=== PATIENT | female | born 2000 | race Caucasian/White ===

== ENCOUNTER 2023-10-31 09:57 | Outpatient (RCR) | payer OTHER, SELFPAY ==
[2023-10-31 10:05] VITALS: BP 108/58
[2023-10-31] MEDS: VENOFER 110 MG IV (10:16)
== END 2023-11-01 09:21 | disposition home or self-care (01) ==
LOC: OID 09:57
PROVIDERS: ATTENDING PHYSICIAN Nurse Practitioner Family; FAMILY PHYSICIAN Family Medicine
DX: D50.9 Iron deficiency anemia, unspecified (principal); E61.1 Iron deficiency; N92.0 Excessive and frequent menstruation with regular cycle
CPT/HCPCS: 96365; J1756

== ENCOUNTER 2023-11-24 12:56 | Outpatient (RCR) | payer OTHER, SELFPAY ==
[2023-11-07 14:30] VITALS: BP 121/77
[2023-11-07] MEDS: VENOFER 110 MG IV (14:42)
[2023-11-07 15:45] VITALS: BP 112/63
[2023-11-14 10:20] VITALS: BP 105/70
[2023-11-14] MEDS: VENOFER 110 MG IV (10:32)
[2023-11-14 11:40] VITALS: BP 107/66
[2023-11-21 10:09] VITALS: BP 101/76
[2023-11-21] MEDS: VENOFER 110 MG IV (10:18)
[2023-11-21 11:29] VITALS: BP 129/83
[2023-11-24 13:10] VITALS: BP 114/41
[2023-11-24] MEDS: VENOFER 110 MG IV (13:19)
[2023-11-24 14:25] VITALS: BP 106/64
== END 2023-11-25 09:24 | disposition home or self-care (01) ==
LOC: OID 12:56
PROVIDERS: ATTENDING PHYSICIAN Nurse Practitioner Family; FAMILY PHYSICIAN Family Medicine
DX: D50.9 Iron deficiency anemia, unspecified (principal); R53.83 Other fatigue; E61.1 Iron deficiency; N92.0 Excessive and frequent menstruation with regular cycle; Z83.2 Family history of diseases of the blood and blood-forming organs and certain disorders involving the immune mechanism
CPT/HCPCS: 96365; J1756

== ENCOUNTER → 2024-02-02 10:36 | Outpatient (REF) | payer OTHER, SELFPAY ==
[2024-02-04 14:10] LABS: Quantiferon Mitogen minus NIL 9.99 IU/mL; Quantiferon NIL 0.01 IU/mL; Quantiferon Plus TB1 minus NIL 0.13 IU/mL (<=0.34); Quantiferon Plus TB2 minus NIL 0.16 IU/mL (<=0.34); Quantiferon TB Gold Plus Negative (Negative)
== END ==
LOC: OHS 10:36
PROVIDERS: ATTENDING PHYSICIAN Nurse Practitioner Family
DX: Z23 Encounter for immunization (principal)
CPT/HCPCS: 36415; 86480

== ENCOUNTER 2024-07-06 11:44 | Emergency (ER) | payer SELFPAY ==
[2024-07-06 11:45] VITALS: BP 135/96
--- NOTE | 2024-07-06 11:57 | ED.BBFEXPP ---
HPI- Blood/Body Fluid Exposure
General
Chief Complaint: Blood and Body Fluid Exposure
Source: patient
Exam Limitations: none
Time Seen by Provider: 07/06/24 11:47
History of Present Illness
Initial Comments:
23-year-old female tach here with needlestick to right thumb she sustained today drawing blood from the patient in triage. Patient is healthy otherwise. This was a small gauge needle she was able to express blood and wash her thumb off immediately
afterwards. Status of source patient is unknown but is a current patient in the emergency room
Past Medical History Pediatric
Past Medical History
Past Medical History Pediatric: no problems
Family/Social History
Living: with family
Pediatric Physical Exam
Physical Exam
Pediatric Physical Exam:
General: Well-appearing female no acute distress
Skin: Small puncture to the right thumb
Course
Orders/Labs/Results
Orders:
Orders
07/06/24 11:48
Pt has had a significant HIV exposure? Routine
HIV Exposure is significant?: Yes
07/06/24 11:53
HIV Combo Urgent
Hepatitis B Surface Antibody Urgent
Hepatitis B Surface Antigen Urgent
Hepatitis C Antibody Urgent
Vital Signs
Initial and Last Documented VS:
Initial Vital Signs
Temp Pulse Resp BP Pulse Ox
98.2 F 84 16 135/96 99
07/06/24 11:45 07/06/24 11:45 07/06/24 11:45 07/06/24 11:45 07/06/24 11:45
Last Documented Vital Signs
Temp Pulse Resp BP Pulse Ox
98.2 F 84 16 135/96 99
07/06/24 11:45 07/06/24 11:45 07/06/24 11:45 07/06/24 11:45 07/06/24 11:45
MDM/Problems Addressed
Differential Diagnosis Includes:
Needlestick injury to right thumb. Exposure profile ordered and sent. Had discussion with patient regarding option for prophylactic treatment for HIV exposure. She decided against as we will be getting the source patient profile checked as well.
*Critical Care Note
Total Time (30-74mins, 75-104mins- exclusive of procedures): Not Applicable
ED Attending Note
-
Portions of this chart may have been created with voice recognition software.� Occasional wrong word or��sound alike� substitutions may have occurred due to the inherent limitations of voice recognition software.
Discharge Plan
Departure
Patient Disposition: Home (Routine Discharge)
Date of Disposition: 07/06/24
Time of Disposition: 12:00
Patient with high blood pressure during this ER visit?: No
Discharge Problem:
Needle stick injury of finger
Instructions: Blood or body fluid exposure
Prescriptions:
No Action
cyanocobalamin (vitamin B-12) [Vitamin B-12] 1,000 mcg Tablet
1,000 mcg PO DAILY
magnesium Tablet
1 tab PO DAILY
()
1 unit PO DAILY
Stand Alone Forms: Bl/Fluid Consent/Declination, Blood Body/Fluid Exposure
Interventions
Interventions:
*Risk Screen - Suicide Last Done: 07/06/24 11:45
*General Assessment Last Done: 07/06/24 11:45
*Neglect/Abuse Screening Last Done: 07/06/24 11:45
*ED COVID-19 Vaccine History Last Done: 07/06/24 11:45
Discharge Date and Time
Print Language: MAURITANIAN
[2024-07-06 12:58] LABS: Hepatitis B Surface Antigen Negative (Negative)
[2024-07-06 13:08] LABS: HIV Combo Negative (Negative)
[2024-07-06 13:16] LABS: Hepatitis B Surface Antibody Negative; Hepatitis C Antibody Negative (Negative)
== END 2024-07-06 12:29 | disposition home or self-care (01) ==
LOC: EMR 11:44
PROVIDERS: Physician Assistant; EMERGENCY PHYSICIAN Emergency Medicine
DX: Z77.21 Contact with and (suspected) exposure to potentially hazardous body fluids (principal); W46.0XXA Contact with hypodermic needle, initial encounter; Y99.0 Civilian activity done for income or pay
CPT/HCPCS: 99283; 86706; 86803; 87340; 87389